=== PATIENT | female | born 2000 | race African-American/Black ===

== ENCOUNTER 2018-10-12 22:48 | Emergency (ER) | payer BC, OTHER ==
[2018-10-12 22:52] VITALS: BP 123/66; PULSE 96; TEMP 98.2; BMI 38.4
--- NOTE | 2018-10-13 00:21 | PDOC ---
History of Present Illness - General Chief Complaint: Back Pain Stated Complaint: FALL SHOUDER/BACK HURTING Time Seen by Provider: 10/12/18 23:12 History Source: Patient Exam Limitations: No Limitations - History of Present Illness Initial Comments: 10/13/18 00:16 HISTORY OF PRESENT ILLNESS: 18-year-old woman for evaluation of left shoulder and upper back pain status post fall down stairs. Patient reports she was walking with slippers on wooden indoor steps when she turned causing her to lose her balance and fall feetfirst down 7 steps. Patient reports she fell onto her left side and denies striking her head. She denies any loss of consciousness. Patient reports incident happened at approximately 10:30 this evening patient immediately came to the emergency department for evaluation. No recent travel or sick contacts. PAST MEDICAL HISTORY: Denies past medical history SURGICAL HISTORY: Denies ALLERGIES: No known drug allergies REVIEW OF SYSTEMS General/Constitutional: Denies fever or chills. Denies weakness, weight change. HEENT: Denies change in vision. Denies ear pain or discharge. Denies sore throat. Cardiovascular: Denies chest pain or shortness of breath. Respiratory: Denies cough, wheezing, or hemoptysis. Gastrointestinal: Denies nausea, vomiting, diarrhea or constipation. Denies rectal bleeding. Genitourinary: Denies dysuria, frequency, or change in urination. Musculoskeletal: see HPI Skin and breasts: Denies rash or easy bruising. Neurologic: Denies headache, vertigo, loss of consciousness, or loss of sensation. Psychiatric: Denies depression or anxiety. Endocrine: Denies increased thirst. Denies abnormal weight change. Hematologic/Lymphatic: Denies anemia, easy bleeding, or history of blood clots. Allergic/Immunologic: Denies hives or skin allergy. Denies latex allergy. PHYSICAL EXAM General Appearance: Well-appearing, appropriately dressed. No apparent distress , no intoxication. HEENT: EOMI, PERRLA, normal ENT inspection, normal voice, TMs normal, pharynx normal. No conjunctival pallor. No photophobia, scleral icterus. Neck: Supple. Trachea midline. No tenderness, rigidity, carotid bruit, stridor , lymphadenopathy, or thyromegaly. Respiratory/Chest: Lungs CTAB. No shortness of breath, chest tenderness, respiratory distress, accessory muscle use. No crackles, rales, rhonchi, stridor , wheezing, dullness Cardiovascular: RRR. S1, S2. No JVD, murmur, bradycardia, tachycardia. Vascular Pulses: Dorsalis-Pedis (R): 2+, Dorsalis-Pedis (L): 2+ Gastrointestinal/Abdominal: Normal bowel sounds. Abdomen soft, non-distended. No tenderness or rebound tenderness. No organomegaly, pulsatile mass, guarding, hernia, hepatomegaly, splenomegaly. Lymphatic: No adenopathy, tenderness. Musculoskeletal/Extremities: Diffuse tenderness to multiple ribs posteriorly on the left side. Patient with limited range of motion of her left shoulder with abduction. Patient unable to past 90. Strength 5/5 bilaterally. No bony tenderness to the shoulder, scapula or clavicle. No crepitus, subcutaneous emphysema bony deformities noted to the rib cage, clavicle, scapula or humerus. Pelvis is stable. No bony tenderness present to cervical spine, thoracic spine or lumbar spine. Integumentary: Appropriate color, dry, warm. 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 Fully oriented, alert. Appropriate mood/affect. Motor strength 5/5. No appreciable EOM palsy, facial droop or sensory deficit. Past History - Past Medical History Allergies/Adverse Reactions: Allergies Allergy/AdvReac Type Severity Reaction Status Date / Time No Known Allergies Allergy Verified 10/13/18 00:07 Home Medications: Ambulatory Orders NK [No Known Home Medication] 10/13/18 COPD: No - Immunization History Immunization Up to Date: Yes - Suicide/Smoking/Psychosocial Hx Smoking History: Never smoked Hx Alcohol Use: No Drug/Substance Use Hx: No Substance Use Type: None *Physical Exam - Vital Signs Last Vital Signs Temp Pulse Resp BP Pulse Ox 98.2 F 96 H 18 123/66 98 10/12/18 22:50 10/12/18 22:50 10/12/18 22:50 10/12/18 22:50 10/12/18 22:50 ED Treatment Course - RADIOLOGY Radiology Studies Ordered: Category Date Time Status RIBS-LEFT SIDE [RAD] Stat Radiology 10/12/18 23:40 Ordered SHOULDER-LEFT [RAD] Stat Radiology 10/12/18 23:40 Ordered Medical Decision Making - Medical Decision Making 10/13/18 00:20 A/P: 18-year-old female with left shoulder and upper back pain status post feetfirst fall downstairs Urinalysis, urine testing X-rays Reassess 10/13/18 01:44 Urinalysis is unremarkable. X-rays as read by me: No acute fractures or dislocations to left ribs, left humerus, left scapula or left clavicle. ? Acromioclavicular joint separation present to the left shoulder when compared to the right. Sling I discussed the physical exam findings, ancillary test results and final diagnoses with the patient. I answered all of the patient's questions. The patient was satisfied with the care received and felt comfortable with the discharge plan and treatment plan. The patient will call their primary care physician within 24 hours to arrange follow-up and will return to the Emergency Department with any new, persistent or worsening symptoms. *DC/Admit/Observation/Transfer Diagnosis at time of Disposition: Left shoulder pain Qualifiers: Chronicity: acute Qualified Code(s): M25.512 - Pain in left shoulder Contusion of ribs Qualifiers: Encounter type: initial encounter Laterality: left Qualified Code(s): S20.212A - Contusion of left front wall of thorax, initial encounter - Discharge Dispostion Disposition: HOME Condition at time of disposition: Stable Decision to Admit order: No - Referrals Referrals: Yamileth Ho [Primary Care Provider] - Hardy Vincent DO [Staff Physician] - - Patient Instructions Additional Instructions: Take Tylenol or Motrin as needed for pain. Follow manufacturers instructions for appropriate dosage. Apply ice for 20 minutes and removed for at least 20 minutes before reapplying the ice. Keep sling on your shoulder as much as possible to help control pain. You've been given the number for an orthopedist. If symptoms do not resolve within the next 7 days call the orthopedist for further evaluation. Return to emergency department for discoloration of the hand, numbness or tingling to the hand, worsening pain, or any other concerns. Thank you very much for choosing us to provide your emergent healthcare needs. - Post Discharge Activity Forms/Work/School Notes: Back to Work
[2018-10-13 00:42] LABS: PH,URINE 5.5 (5.0-8.0); URINE APPEARANCE CLEAR; URINE BILIRUBIN NEGATIVE (NEGATIVE); URINE COLOR YELLOW; URINE GLUCOSE (UA) NEGATIVE (NEGATIVE); URINE KETONE NEGATIVE (NEGATIVE); URINE LEUK ESTERASE NEGATIVE (NEGATIVE); URINE NITRITE NEGATIVE (NEGATIVE); URINE PROTEIN NEGATIVE (NEGATIVE); URINE UROBILINOGEN 0.2 mg/dL (0.2-1.0)
[2018-10-13 00:44] LABS: HCG,QUALITATIVE URINE Negative
--- NOTE | 2018-10-13 02:27 | PDOC ---
*Physical Exam - Vital Signs Last Vital Signs Temp Pulse Resp BP Pulse Ox 98.2 F 96 H 18 123/66 98 10/12/18 22:50 10/12/18 22:50 10/12/18 22:50 10/12/18 22:50 10/12/18 22:50 ED Treatment Course - ADDITIONAL ORDERS Additional order review: Laboratory Results 10/13/18 00:05 Urine Color Yellow Urine Appearance Clear Urine pH 5.[address] 1.026 Urine Protein Negative Urine Glucose (UA) Negative Urine Ketones Negative Urine Blood Negative Urine Nitrite Negative Urine Bilirubin Negative Urine Urobilinogen 0.2 Ur Leukocyte Esterase Negative Urine HCG, Qual Negative - Medications Given in the ED: ED Medications Discontinued Medications Generic Name Dose Route Start Last Admin Trade Name Freq PRN Reason Stop Dose Admin Oxycodone/Acetaminophen 2 combo 10/13/18 01:13 10/13/18 01:25 Percocet 5/325 - PO 10/13/18 01:14 2 combo ONCE ONE Administration Medical Decision Making - Medical Decision Making 10/13/18 02:26 Case discussed with OLAF Taylor Agree with assessment and plan *DC/Admit/Observation/Transfer Diagnosis at time of Disposition: Left shoulder pain Qualifiers: Chronicity: acute Qualified Code(s): M25.512 - Pain in left shoulder Contusion of ribs Qualifiers: Encounter type: initial encounter Laterality: left Qualified Code(s): S20.212A - Contusion of left front wall of thorax, initial encounter - Discharge Dispostion Disposition: HOME Condition at time of disposition: Stable - Referrals Referrals: Hardy Vincent DO [Staff Physician] - Yamileth Ho [Primary Care Provider] - - Patient Instructions Additional Instructions: Take Tylenol or Motrin as needed for pain. Follow manufacturers instructions for appropriate dosage. Apply ice for 20 minutes and removed for at least 20 minutes before reapplying the ice. Keep sling on your shoulder as much as possible to help control pain. You've been given the number for an orthopedist. If symptoms do not resolve within the next 7 days call the orthopedist for further evaluation. Return to emergency department for discoloration of the hand, numbness or tingling to the hand, worsening pain, or any other concerns. Thank you very much for choosing us to provide your emergent healthcare needs. - Post Discharge Activity Forms/Work/School Notes: Back to Work
== END 2018-10-13 01:49 | disposition home or self-care (01) ==
LOC: JER 22:48
DX: S20.212A Contusion of left front wall of thorax, initial encounter (principal); M25.512 Pain in left shoulder; W10.8XXA Fall (on) (from) other stairs and steps, initial encounter; Y93.89 Activity, other specified; Y92.038 Other place in apartment as the place of occurrence of the external cause; Y99.8 Other external cause status
CPT/HCPCS: 71101-TC-LT-FY; 73030-TC-LT-FY; 81003; 84703; 99283-25